=== PATIENT | male | born 1985 | race Caucasian/White ===

== ENCOUNTER 2018-10-08 17:50 | Emergency (ER) | payer OTHER ==
[~2018-10-08] VITALS: Ht 185.4 cm; Wt 98.9 kg
[~2018-10-08 17:50] MED LIST: CIPRO500 MG PO; FLA250 PO; LAC PO
[2018-10-08 18:08] VITALS: Ht 185.4 cm; Wt 98.9 kg
[2018-10-08 20:53] VITALS: BP 125/68
== END 2018-10-08 20:54 | disposition home or self-care (01) ==
LOC: ED 17:50
DX: S81.811A Laceration without foreign body, right lower leg, initial encounter (principal); Z88.0 Allergy status to penicillin; Z88.1 Allergy status to other antibiotic agents; W26.0XXA Contact with knife, initial encounter; Y93.89 Activity, other specified; Y92.89 Other specified places as the place of occurrence of the external cause; Y99.8 Other external cause status
CPT/HCPCS: 90715; J2001

== ENCOUNTER 2018-10-11 15:00 | Emergency (ER) | payer OTHER ==
[~2018-10-11] VITALS: Ht 182.9 cm; Wt 98.4 kg
[2018-10-11 15:10] VITALS: Ht 182.9 cm; Wt 98.4 kg
[2018-10-11 15:45] VITALS: BP 129/81
== END 2018-10-11 15:45 | disposition home or self-care (01) ==
LOC: ED 15:00
DX: S81.011D Laceration without foreign body, right knee, subsequent encounter (principal); X58.XXXD Exposure to other specified factors, subsequent encounter; Z88.0 Allergy status to penicillin; Z88.1 Allergy status to other antibiotic agents

== ENCOUNTER 2018-10-17 12:46 | Emergency (ER) | payer OTHER ==
[~2018-10-17] VITALS: Ht 182.9 cm; Wt 97.1 kg
[2018-10-17 13:12] VITALS: Ht 182.9 cm; Wt 97.1 kg
[2018-10-17 14:58] VITALS: BP 124/70
== END 2018-10-17 14:58 | disposition home or self-care (01) ==
LOC: ED 12:46
DX: S81.011D Laceration without foreign body, right knee, subsequent encounter (principal); W45.8XXD Other foreign body or object entering through skin, subsequent encounter

== ENCOUNTER 2019-08-16 20:49 | Emergency (ER) | payer OTHER ==
[~2019-08-16] VITALS: Ht 182.9 cm; Wt 95.3 kg
[2019-08-16 21:06] VITALS: Ht 182.9 cm; Wt 95.3 kg
[2019-08-16 23:14] VITALS: BP 134/88
== END 2019-08-16 23:14 | disposition home or self-care (01) ==
LOC: ED 20:49
DX: S61.411A Laceration without foreign body of right hand, initial encounter (principal); W22.8XXA Striking against or struck by other objects, initial encounter; Y93.89 Activity, other specified; Y92.89 Other specified places as the place of occurrence of the external cause; Y99.8 Other external cause status; Z88.0 Allergy status to penicillin; Z88.1 Allergy status to other antibiotic agents
CPT/HCPCS: J2001

== ENCOUNTER 2020-04-22 07:47 | Emergency (ER) | payer OTHER ==
[~2020-04-22] VITALS: Ht 182.9 cm; Wt 97.5 kg
[2020-04-22 07:51] VITALS: Ht 182.9 cm; Wt 97.5 kg
[2020-04-22 09:03] VITALS: BP 127/71
== END 2020-04-22 09:03 | disposition home or self-care (01) ==
LOC: ED 07:47
DX: B34.9 Viral infection, unspecified (principal); Z20.828 Contact with and (suspected) exposure to other viral communicable diseases; Z88.0 Allergy status to penicillin; Z88.1 Allergy status to other antibiotic agents